=== PATIENT | male | born 1965 | race Caucasian/White ===

== ENCOUNTER → 2022-04-03 | Outpatient (CLI) | payer BC ==
--- NOTE | 2022-04-03 14:45 | US ---
EXAMINATION TYPE: US st tissue head/neck DATE OF EXAM: 04/03/2022 COMPARISON: NONE CLINICAL HISTORY: 56-year-old male R22.1 LOCALIZED SWELLING, MASS AND LUMP, NECK. Pt states palpable lump midline, just under chin x 6 months, but has increased in size in last month TECHNIQUE: Multiple sonographic images at the patient's palpable site along the submental region. FINDINGS: [employer] notes: Midline, just under chin there is a heterogeneous hypoechoic region where pt feels palpable= 2.0 x 2.5 x 3.6 cm. There is no evidence of blood flow within this area. The adjacent bila teral submandibular glands appear wnl. Results called to Kenia at doctors office at time of exam IMPRESSION: Targeted scanning along the submental region at the patient's palpable site shows a 3.6 x 2.5 x 2.0 c m heterogeneous area that could reflect an area of cellulitis and phlegmon. No well-defined fluid col lection. Recommend follow-up in 6-8 weeks to reassess after treatment.
== END | disposition home or self-care (01) ==
LOC: RADUSWWP 12:33
PROVIDERS: ATTEND Family Medicine
DX: R22.1 Localized swelling, mass and lump, neck (principal)
CPT/HCPCS: 76536